=== PATIENT | male | born 1955 | race Hispanic/Latino ===

== ENCOUNTER 2017-08-09 12:59 | Inpatient (IN) | payer SELFPAY ==
--- NOTE | 2017-08-09 13:57 | XRay Report ---
CHEST ONE VIEW INDICATION: Hypertension. COMPARISON: None similar at this institution. FINDINGS: Portable, single, frontal chest radiograph demonstrates normal cardiomediastinal silhouette. Clear lungs. Post CABG changes. Extrinsic EKG leads. CONCLUSION: No acute disease in the chest. Thank you for the opportunity to participate in this patient's care.
[2017-08-09] MEDS ORDERED: NITRO-BID 2% TP ONE ×2 (14:15→16:23)
[2017-08-09 14:19] LABS: Basophils % (Auto) 0.9 % (0.0-1.8); Hematocrit 51.5 % (35.5-45.6); Mean Corpuscular HGB Conc 33 % (32-34); Mean Corpuscular Hemoglobin 30 pg (28-32); Mean Corpuscular Volume 91 fl (84-94); Platelet Count 164 K/mm3 (140-440); Red Blood Count 5.64 M/mm3 (3.65-5.03); Red Cell Distribution Width 14.1 % (13.2-15.2)
[2017-08-09 14:31] LABS: INR 1.02 (0.87-1.13); Partial Thromboplastin Time 27.2 Sec. (24.2-36.6)
[2017-08-09 14:39] LABS: Anion Gap 19 mmol/L; Blood Urea Nitrogen 14 mg/dL (9-20); Calcium 8.6 mg/dL (8.4-10.2); Carbon Dioxide 23 mmol/L (22-30); Chloride 103.5 mmol/L (98-107); Glucose 96 mg/dL (75-100); Potassium 3.5 mmol/L (3.6-5.0); Sodium 142 mmol/L (137-145)
[2017-08-09 14:41] LABS: Alanine Aminotransferase 26 units/L (7-56); Albumin 3.7 g/dL (3.9-5); Alkaline Phosphatase 72 units/L (35-129); Total Protein 7.3 g/dL (6.3-8.2)
[2017-08-09 14:42] LABS: Bilirubin,Direct < 0.2 mg/dL (0-0.2)
--- NOTE | 2017-08-09 15:05 | Emergency Department Report ---
ED Chest Pain HPI - General Chief Complaint: Chest Pain Stated Complaint: CHEST PAIN Time Seen by Provider: 08/09/17 13:40 Source: patient, EMS Mode of arrival: Stretcher Limitations: No Limitations - History of Present Illness Initial Comments: The patient states that he has calm up here from [place]. He states he's been out of his medicine to include Plavix for his stents for 2 weeks. He complains of recurrent chest pain similar to that prior acute coronary syndrome. He states that he had 2 stents placed at [facility] [place]. He referred the onset of chest pain/pressure at about noon today. He states the pain was radiating to his left upper extremity. He took 2 nitroglycerin and aspirin but stated that the pain was persistent upon us for arrival. He did not refer sweating nausea or vomiting. Blood pressure was elevated on arrival. MD Complaint: chest pain -: hour(s) Onset: during rest Pain Location: substernal Pain Radiation: LUE Severity: moderate Quality: tightness Consistency: constant Improves With: nothing Worsens With: nothing Context: other re: dyspnea Other Symptoms: other (history of PCI denies leg pain or swelling). denies: cough, fever, syncope Treatments Prior to Arrival: none Aspirin use within the Past 7 Days: (0) No - Related Data On Oral Contraceptives: No Home Medications Medication Instructions Recorded Confirmed Last Taken Aspirin [Aspirin TAB] 325 mg PO QDAY 08/09/17 08/09/17 Unknown Clopidogrel [Plavix] 75 mg PO QDAY 08/09/17 08/09/17 Unknown Lisinopril [Zestril] 20 mg PO QDAY 08/09/17 08/09/17 Unknown Allergies Allergy/AdvReac Type Severity Reaction Status Date / Time No Known Allergies Allergy Unverified 08/09/17 13:32 Heart Score - HEART Score History: Moderately suspicious EKG: Non-specific Age: 45-65 Risk factors: > 3 risk factors or hx of atherosclerotic disease Troponin: < normal limit HEART Score: 5 ED Review of Systems ROS: Stated complaint: CHEST PAIN Other details as noted in HPI Constitutional: denies: chills, fever Eyes: denies: eye pain, eye discharge, vision change ENT: denies: ear pain, throat pain Respiratory: shortness of breath. denies: cough, wheezing Cardiovascular: chest pain. denies: palpitations Endocrine: no symptoms reported Gastrointestinal: denies: abdominal pain, nausea, diarrhea Genitourinary: denies: urgency, dysuria Musculoskeletal: denies: back pain, joint swelling, arthralgia Skin: denies: rash, lesions Neurological: denies: headache, weakness, paresthesias Psychiatric: denies: anxiety, depression Hematological/Lymphatic: denies: easy bleeding, easy bruising ED Past Medical Hx - Past Medical History Previous Medical History?: Yes Hx Hypertension: Yes Hx Heart Attack/AMI: Yes ([place] X7) Additional medical history: Hep C - Social History Smoking Status: Current Every Day Smoker Substance Use Type: None - Medications Home Medications: Home Medications Medication Instructions Recorded Confirmed Last Taken Type Aspirin [Aspirin TAB] 325 mg PO QDAY 08/09/17 08/09/17 Unknown History Clopidogrel [Plavix] 75 mg PO QDAY 08/09/17 08/09/17 Unknown History Lisinopril [Zestril] 20 mg PO QDAY 08/09/17 08/09/17 Unknown History ED Physical Exam - General Limitations: No Limitations General appearance: alert, in no apparent distress - Head Head exam: Present: atraumatic, normocephalic - Eye Eye exam: Present: normal appearance. Absent: scleral icterus - ENT ENT exam: Present: mucous membranes moist - Neck Neck exam: Present: normal inspection - Respiratory Respiratory exam: Present: normal lung sounds bilaterally. Absent: respiratory distress - Cardiovascular Cardiovascular Exam: Present: regular rate, normal rhythm. Absent: systolic murmur, diastolic murmur, rubs, gallop - GI/Abdominal GI/Abdominal exam: Present: soft, normal bowel sounds. Absent: distended, tenderness, guarding, rebound, rigid - Rectal Rectal exam: Present: deferred - Extremities Exam Extremities exam: Present: normal inspection - Back Exam Back exam: Present: normal inspection - Neurological Exam Neurological exam: Present: alert, oriented X3, CN II-XII intact. Absent: motor sensory deficit - Psychiatric Psychiatric exam: Present: normal affect, normal mood - Skin Skin exam: Present: warm, dry, intact, normal color. Absent: rash ED Course Vital Signs 08/09/17 08/09/17 08/09/17 13:23 13:28 13:31 Temperature 97.8 F Pulse Rate 61 63 Respiratory 12 18 13 Rate Blood Pressure 180/104 180/104 O2 Sat by Pulse 99 98 Oximetry 09/13/17 09/13/17 09/13/17 13:36 14:01 14:31 Temperature Pulse Rate 75 61 Respiratory 20 10 L 16 Rate Blood Pressure 183/113 176/105 O2 Sat by Pulse 96 96 96 Oximetry 08/09/17 08/09/17 08/09/17 15:00 15:30 16:00 Temperature Pulse Rate 65 69 71 Respiratory 20 19 14 Rate Blood Pressure 186/111 170/108 182/113 O2 Sat by Pulse 96 94 95 Oximetry 08/09/17 08/09/17 08/09/17 16:25 16:30 17:00 Temperature Pulse Rate 71 66 66 Respiratory 16 14 Rate Blood Pressure 182/113 163/100 167/101 O2 Sat by Pulse 95 94 Oximetry 08/09/17 17:30 Temperature Pulse Rate Respiratory 14 Rate Blood Pressure 176/97 O2 Sat by Pulse 96 Oximetry - Reevaluation(s) Reevaluation #1: Multiple EKGs were reviewed reviewed. The patient does have evidence of an old inferior zone. Otherwise he has nonspecific changes. The static. 08/09/17 18:23 ED Medical Decision Making - Lab Data Result diagrams: 08/09/17 13:55 08/09/17 13:55 Laboratory Results - last 24 hr 08/09/17 08/09/17 08/09/17 13:55 13:55 13:55 WBC 7.0 RBC 5.64 H Hgb 17.0 H Hct 51.5 H MCV 91 MCH 30 MCHC 33 RDW 14.1 Plt Count 164 Lymph % (Auto) 30.1 [place] % (Auto) 10.1 H Eos % (Auto) 2.0 Baso % (Auto) 0.9 Lymph # 2.1 [place] # 0.7 Eos # 0.1 Baso # 0.1 Seg Neutrophils % 56.9 Seg Neutrophils # 4.0 PT 13.3 INR 1.02 APTT 27.2 Sodium 142 Potassium 3.5 L Chloride 103.5 Carbon Dioxide 23 Anion Gap 19 BUN 14 Creatinine 0.7 L Estimated GFR > 60 BUN/Creatinine Ratio 20.00 Glucose 96 Calcium 8.6 Total Bilirubin Direct Bilirubin AST ALT Alkaline Phosphatase Troponin T 0.025 NT-Pro-B Natriuret Pep Total Protein Albumin Albumin/Globulin Ratio 08/09/17 13:55 WBC RBC Hgb Hct MCV MCH MCHC RDW Plt Count Lymph % (Auto) [place] % (Auto) Eos % (Auto) Baso % (Auto) Lymph # [place] # Eos # Baso # Seg Neutrophils % Seg Neutrophils # PT INR APTT Sodium Potassium Chloride Carbon Dioxide Anion Gap BUN Creatinine Estimated GFR BUN/Creatinine Ratio Glucose Calcium Total Bilirubin 0.60 Direct Bilirubin < 0.2 AST 30 ALT 26 Alkaline Phosphatase 72 Troponin T NT-Pro-B Natriuret Pep 677.5 Total Protein 7.3 Albumin 3.7 L Albumin/Globulin Ratio 1.0 - EKG Data -: EKG Interpreted by Me EKG shows normal: sinus rhythm, axis, intervals, ST-T waves Rate: normal - EKG Data Interpretation: nonspecific ST-T wave carlo, other (old inferior zone) - Radiology Data interpreted by me: Previous CABG no acute findings Critical care attestation.: If time is entered above; I have spent that time in minutes in the direct care of this critically ill patient, excluding procedure time. ED Disposition Clinical Impression: Uncontrolled hypertension, Hx of CABG Chest pain Qualifiers: Chest pain type: unspecified Qualified Code(s): R07.9 - Chest pain, unspecified Disposition: -09 OP ADMIT IP TO THIS HOSP Is pt being admited?: Yes Does the pt Need Aspirin: Yes Condition: Stable Instructions: Chest Pain (ED), Hypertension (ED) Referrals: PRIMARY CARE, [Primary Care Provider] - 3-5 Days Time of Disposition: 18:45
[2017-08-09] MEDS ORDERED: ZESTRIL PO ONE (18:13)
[2017-08-09] MEDS ORDERED: PLAVIX PO ONE (18:13)
[2017-08-09] MEDS ORDERED: BABY ASPIRIN PO ONE (18:13)
[2017-08-09] MEDS ORDERED: LASIX IV ONE (18:16)
[2017-08-09] MEDS ORDERED: TYLENOL ONE (18:20)
[2017-08-09] MEDS ORDERED: TYLENOL PO ONE (18:22)
[2017-08-09] MEDS ORDERED: NACL 0.45% 500 ML IV SCH (19:00)
[2017-08-09] MEDS ORDERED: SODIUM CHLORIDE FLUSH SYRINGE 10 ML IV PRN (19:57)
[2017-08-09] MEDS ORDERED: PROVENTIL IH PRN (19:57)
[2017-08-09] MEDS ORDERED: TYLENOL PO PRN (19:57)
--- NOTE | 2017-08-09 20:00 | History and Physical Report ---
History of Present Illness Chief complaint: I was walking outside and my chest started hurting History of present illness: 62 YO Male with HTN, [place] x7, HCV, Nicotine Dependence, CAD S/P Stent placement, Noncompliant with DAPT for past 2 weeks presents to ED for evaluation. Pt states that he was walking outside this afternoon when he experienced an sudden onset of pain in his chest. Pt states that pain 6/10, substernal, nonradiating, persistent, not worsened with exertion, or relieved with rest. Pt states that he took 2 nitroglycerin tablets, and an aspirin without relief. Pt seen and evaluated in ED and was without symptoms at time of exam. Pt denies fever, chills, palpitations, syncope, diaphoresis, shortness of breath, chest pain with deep breathing, recent ill contacts, productive cough, leg swelling, calf pain, or trauma. Past History Past Medical History: acute MD, CAD, hepatitis, hyperlipidemia Past Surgical History: Other (Stent placement) Social history: , smoking. denies: alcohol abuse, prescription drug abuse, IV drug use Family history: CAD, hypertension Medications and Allergies Allergies Allergy/AdvReac Type Severity Reaction Status Date / Time No Known Allergies Allergy Unverified 08/09/17 13:32 Home Medications Medication Instructions Recorded Confirmed Last Taken Type Aspirin [Aspirin TAB] 325 mg PO QDAY 08/09/17 08/09/17 Unknown History Clopidogrel [Plavix] 75 mg PO QDAY 08/09/17 08/09/17 Unknown History Lisinopril [Zestril] 20 mg PO QDAY 08/09/17 08/09/17 Unknown History Active Meds: Active Medications Sodium Chloride (Nacl 0.45%) 500 mls @ 250 mls/hr IV DIRECT RAÚL Review of Systems Constitutional: no weight loss, no weight gain, no fever, no chills Ears, nose, mouth and throat: no ear pain, no ear discharge, no tinnitis, no decreased hearing Cardiovascular: chest pain, no orthopnea, no shortness of breath, no dyspnea on exertion, no paroxysmal nocturnal dyspnea, no leg edema Respiratory: no cough, no cough with sputum, no excessive sputum, no hemoptysis Gastrointestinal: no abdominal pain, no nausea, no vomiting, no diarrhea Genitourinary Male: no dysuria, no hematuria, no flank pain, no discharge Rectal: no pain, no incontinence, no bleeding Musculoskeletal: no neck stiffness, no neck pain, no shooting arm pain, no arm numbness/tingling, no low back pain Integumentary: no rash, no pruritis, no redness, no sores Neurological: no transient paralysis, no paralysis, no weakness, no parathesias Psychiatric: no anxiety, no memory loss, no change in sleep habits, no sleep disturbances, no insomnia Endocrine: no cold intolerance, no heat intolerance, no polyphagia, no excessive thirst, no polydipsia Hematologic/Lymphatic: no easy bruising, no easy bleeding Allergic/Immunologic: no urticaria, no allergic rhinitis, no wheezing Exam - Constitutional Vitals: Temp Pulse Resp BP Pulse Ox 97.8 F 61 17 180/101 96 08/09/17 13:28 08/09/17 19:30 08/09/17 19:30 08/09/17 19:30 08/09/17 19:30 General appearance: Present: mild distress - EENT Eyes: Present: PERRL ENT: hearing intact, clear oral mucosa - Neck Neck: Present: supple, normal ROM - Respiratory Respiratory effort: normal Respiratory: bilateral: CTA - Cardiovascular Heart Sounds: Present: S1 & S2. Absent: rub, click - Extremities Extremities: pulses symmetrical, No edema Peripheral Pulses: within normal limits - Abdominal General gastrointestinal: Present: soft, non-tender, non-distended, normal bowel sounds Male genitourinary: Present: normal - Integumentary Integumentary: Present: clear, warm, dry - Musculoskeletal Musculoskeletal: gait normal, strength equal bilaterally - Psychiatric Psychiatric: appropriate mood/affect, intact judgment & insight - Neurologic Neurologic: CNII-XII intact, moves all extremities Results - Labs CBC & Chem 7: 08/09/17 13:55 08/09/17 13:55 Labs: Abnormal lab results 08/09/17 08/09/17 08/09/17 Range/Units 13:55 13:55 13:55 RBC 5.64 H (3.65-5.03) M/mm3 Hgb 17.0 H (11.8-15.2) gm/dl Hct 51.5 H (35.5-45.6) % [place] % (Auto) 10.1 H (0.0-7.3) % Potassium 3.5 L (3.6-5.0) mmol/L Creatinine 0.7 L (0.8-1.5) mg/dL Troponin T (0.00-0.029) ng/mL Albumin 3.7 L (3.9-5) g/dL 08/09/17 Range/Units 17:52 RBC (3.65-5.03) M/mm3 Hgb (11.8-15.2) gm/dl Hct (35.5-45.6) % [place] % (Auto) (0.0-7.3) % Potassium (3.6-5.0) mmol/L Creatinine (0.8-1.5) mg/dL Troponin T 0.053 H D (0.00-0.029) ng/mL Albumin (3.9-5) g/dL Assessment and Plan - Patient Problems (1) Angina at rest Current Visit: Yes Status: Acute Plan to address problem: Serial cardiac enzymes, ekg, telemetry, cardiology consulted, therapeutic anticoagulation, (2) Accelerated hypertension Current Visit: Yes Status: Acute Plan to address problem: monitor bp q shift, continue current therapy, resume home medication, (3) Nicotine dependence Current Visit: Yes Status: Acute Qualifiers: Nicotine product type: N Substance use status: S Plan to address problem: Pt counseled, Pt refused to pick quit date (4) CAD (coronary artery disease) Current Visit: Yes Status: Acute Qualifiers: Coronary Disease-Associated Artery/Lesion type: C [place] vs. transplanted heart: N Associated angina: A Plan to address problem: resume DAPT, medical management, cardiology consulted (5) Noncompliance with medication regimen Current Visit: Yes Status: Acute Plan to address problem: Pt counseled, (6) DVT prophylaxis Current Visit: Yes Status: Acute
[2017-08-09] MEDS ORDERED: NACL 0.45% 1000 ML 1,000 ML IV ONE (20:03)
[2017-08-09] MEDS: PLAVIX PO SCH (20:56)
[2017-08-09] MEDS: ASPIRIN PO SCH (20:56)
[2017-08-09] MEDS: ZESTRIL PO SCH (20:57)
[2017-08-09] MEDS: PEPCID PO SCH (22:19)
[2017-08-10] MEDS ORDERED: LOVENOX SUB-Q SCH (06:00)
--- NOTE | 2017-08-10 09:05 | Progress Note ---
Assessment and Plan Assessment and plan: 62-year-old man with past medical history of hypertension and CAD status post stent placement, [place] 7, HCV, nicotine dependence who presented with sudden onset of chest pain Hypertensive urgency Chest pain Nicotine dependence and CAD Noncompliance with medication regimen Hospitalist Physical - Constitutional Vitals: Temp Pulse Resp BP Pulse Ox 97.5 F L 57 L 18 124/82 95 08/10/17 07:47 08/10/17 07:47 08/10/17 07:47 08/10/17 07:47 08/10/17 07:47 General appearance: Present: mild distress Results - Labs CBC & Chem 7: 08/09/17 13:55 08/09/17 13:55 Labs: Laboratory Last Values WBC 7.0 K/mm3 (4.5-11.0) 08/09/17 13:55 RBC 5.64 M/mm3 (3.65-5.03) H 08/09/17 13:55 Hgb 17.0 gm/dl (11.8-15.2) H 08/09/17 13:55 Hct 51.5 % (35.5-45.6) H 08/09/17 13:55 MCV 91 fl (84-94) 08/09/17 13:55 MCH 30 pg (28-32) 08/09/17 13:55 MCHC 33 % (32-34) 08/09/17 13:55 RDW 14.1 % (13.2-15.2) 08/09/17 13:55 Plt Count 164 K/mm3 (140-440) 08/09/17 13:55 Lymph % (Auto) 30.1 % (13.4-35.0) 08/09/17 13:55 [place] % (Auto) 10.1 % (0.0-7.3) H 08/09/17 13:55 Eos % (Auto) 2.0 % (0.0-4.3) 08/09/17 13:55 Baso % (Auto) 0.9 % (0.0-1.8) 08/09/17 13:55 Lymph # 2.1 K/mm3 (1.2-5.4) 08/09/17 13:55 [place] # 0.7 K/mm3 (0.0-0.8) 08/09/17 13:55 Eos # 0.1 K/mm3 (0.0-0.4) 08/09/17 13:55 Baso # 0.1 K/mm3 (0.0-0.1) 08/09/17 13:55 Seg Neutrophils % 56.9 % (40.0-70.0) 08/09/17 13:55 Seg Neutrophils # 4.0 K/mm3 (1.8-7.7) 08/09/17 13:55 PT 13.3 Sec. (12.2-14.9) 08/09/17 13:55 INR 1.02 (0.87-1.13) 08/09/17 13:55 APTT 27.2 Sec. (24.2-36.6) 08/09/17 13:55 Sodium 142 mmol/L (137-145) 08/09/17 13:55 Potassium 3.5 mmol/L (3.6-5.0) L 08/09/17 13:55 Chloride 103.5 mmol/L (98-107) 08/09/17 13:55 Carbon Dioxide 23 mmol/L (22-30) 08/09/17 13:55 Anion Gap 19 mmol/L 08/09/17 13:55 BUN 14 mg/dL (9-20) 08/09/17 13:55 Creatinine 0.7 mg/dL (0.8-1.5) L 08/09/17 13:55 Estimated GFR > 60 ml/min 08/09/17 13:55 BUN/Creatinine Ratio 20.00 % 08/09/17 13:55 Glucose 96 mg/dL (75-100) 08/09/17 13:55 Calcium 8.6 mg/dL (8.4-10.2) 08/09/17 13:55 Total Bilirubin 0.60 mg/dL (0.1-1.2) 08/09/17 13:55 Direct Bilirubin < 0.2 mg/dL (0-0.2) 08/09/17 13:55 AST 30 units/L (5-40) 08/09/17 13:55 ALT 26 units/L (7-56) 08/09/17 13:55 Alkaline Phosphatase 72 units/L (35-129) 08/09/17 13:55 Troponin T 0.062 ng/mL (0.00-0.029) H 08/10/17 02:34 NT-Pro-B Natriuret Pep 677.5 pg/mL (0-900) 08/09/17 13:55 Total Protein 7.3 g/dL (6.3-8.2) 08/09/17 13:55 Albumin 3.7 g/dL (3.9-5) L 08/09/17 13:55 Albumin/Globulin Ratio 1.0 % 08/09/17 13:55 Triglycerides 161 mg/dL (2-149) H 08/09/17 17:52 Cholesterol 177 mg/dL (50-199) 08/09/17 17:52 LDL Cholesterol Direct 111 mg/dL (50-130) 08/09/17 17:52 HDL Cholesterol 34 mg/dL (40-59) L 08/09/17 17:52 Cholesterol/HDL Ratio 5.20 % 08/09/17 17:52 Blood Type O POSITIVE 08/09/17 20:55 Antibody Screen Negative 08/09/17 20:55
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
[2017-08-10] MEDS ORDERED: NACL 0.9% 500 ML 500 ML IV SCH (14:00)
[2017-08-10 14:37] LABS: Hematocrit 49.6 % (35.5-45.6); Hemoglobin 16.8 gm/dl (11.8-15.2)
[2017-08-10 14:47] LABS: INR 0.99 (0.87-1.13)
[2017-08-10 14:52] LABS: Partial Thromboplastin Time 32.9 Sec. (24.2-36.6)
--- NOTE | 2017-08-10 16:19 | Event Note ---
Date: 08/10/17 Pt noted to have 8 beat run NSVT on tele. Pt asymptomatic with stable VS. Obtain serum Mg. Cont BB. Darwin BROWN NP / DR. LIM
[2017-08-10] MEDS: ASPIRIN PO SCH (16:54)
[2017-08-10] MEDS: PLAVIX PO SCH (16:54)
[2017-08-10] MEDS: PEPCID PO SCH ×2 (16:54→22:23)
[2017-08-10] MEDS: ZESTRIL PO SCH (16:55)
[2017-08-10] MEDS: HEPARIN/ 0.45% NACL-25,000 UNIT/500 ML 25,000 UNIT/500 ML BAG IV SCH (18:43)
[2017-08-10] MEDS: LOPRESSOR PO SCH (22:25)
[2017-08-11 06:14] LABS: Basophils % (Auto) 0.8 % (0.0-1.8); Eosinophils % (Auto) 3.1 % (0.0-4.3); Hematocrit 46.8 % (35.5-45.6); Hemoglobin 15.9 gm/dl (11.8-15.2); Mean Corpuscular HGB Conc 34 % (32-34); Mean Corpuscular Hemoglobin 31 pg (28-32); Mean Corpuscular Volume 90 fl (84-94); Platelet Count 128 K/mm3 (140-440); Red Blood Count 5.18 M/mm3 (3.65-5.03); Red Cell Distribution Width 14.1 % (13.2-15.2); White Blood Count 6.5 K/mm3 (4.5-11.0)
[2017-08-11 06:24] LABS: INR 1.01 (0.87-1.13)
[2017-08-11 06:47] LABS: Anion Gap 17 mmol/L; BUN/Creatinine Ratio 22.22; Blood Urea Nitrogen 20 mg/dL (9-20); Calcium 8.1 mg/dL (8.4-10.2); Carbon Dioxide 22 mmol/L (22-30); Chloride 102.8 mmol/L (98-107); Glucose 92 mg/dL (75-100); Potassium 3.7 mmol/L (3.6-5.0); Sodium 138 mmol/L (137-145)
[2017-08-11] MEDS ORDERED: CALAN ONE (08:47)
[2017-08-11] MEDS ORDERED: HEPARIN/NS 5000 UNIT/500ML(CATH LAB) 1,000 ML IR ONE (08:47)
[2017-08-11] MEDS ORDERED: HEPARIN 10,000 UNITS/10 ML ONE ×2 (08:47→08:48)
[2017-08-11] MEDS ORDERED: NITROGLYCERIN SYRINGE 3 ML ONE (08:48)
[2017-08-11] MEDS ORDERED: XYLOCAINE 2% INFILTRATI ONE ×2 (08:48→09:12)
[2017-08-11] MEDS ORDERED: NACL 0.9% 500 ML 500 ML ONE (08:55)
[2017-08-11] MEDS: HEPARIN/ 0.45% NACL-25,000 UNIT/500 ML 25,000 UNIT/500 ML BAG IV SCH (09:15)
[2017-08-11] MEDS: VERSED ONE ×2 (09:20→09:36)
[2017-08-11] MEDS: SUBLIMAZE ONE ×2 (09:20→09:36)
[2017-08-11] MEDS ORDERED: PLAVIX ONE (09:43)
--- NOTE | 2017-08-11 10:05 | Progress Note ---
Assessment and Plan Chest pain unstable angina sob with exertion Hypertension urgency Hyper lipid Coronary disease bypass in 2006 and PCI of SVG to PDA in 2017 Recommend in view of patent bypass grafts treat patient medically BP control aspirin Plavix statin and blood pressure control ,by the left radial approach post-cath care. Be discharged from a cardiovascular point of view Subjective Date of service: 08/11/17 Principal diagnosis: chest pain Interval history: Chest pain-free this morning Objective Vital Signs Temp Pulse Resp BP BP Pulse Ox 08/11/17 04:15 97.8 F 59 L 20 143/83 99 08/10/17 20:37 99 08/10/17 19:50 98.6 F 58 L 20 130/78 95 08/10/17 19:22 98.6 F 58 L 20 130/78 95 08/10/17 16:55 70 124/82 08/10/17 15:49 97.6 F 62 18 137/88 96 08/10/17 11:27 97.6 F 53 L 18 127/82 94 08/10/17 11:06 53 L 08/10/17 10:35 99 - Physical Examination General: Appears Well, No Apparent Distress HEENT: Positive: PERRL, Normocephaly, Mucus Membranes Moist Neck: Positive: neck supple, trachea midline Cardiac: Positive: Reg Rate and Rhythm, Regular Rhythm Lungs: Positive: clear to auscultation Neuro: Positive: Grossly Intact, Cranial Nerve 2-12 Intact Abdomen: Positive: Unremarkable, Soft, Active Bowel Sounds. Negative: Tender /Rectal: Normal Prostate, No Masses Skin: Positive: Clear. Negative: Rash, Wound Musculoskeletal: No Fluid Collection, No Pain, Normal Range of Motion Gait: Normal Gait Extremities: Present: upper extr. pulses, lower extr. pulses. Absent: edema - Labs and Meds Coagulation 08/10/17 08/11/17 Range/Units 13:57 04:49 PT 13.6 13.8 (12.2-14.9) Sec. INR 0.99 1.01 (0.87-1.13) APTT 32.9 (24.2-36.6) Sec. CBC 08/10/17 08/11/17 Range/Units 13:57 04:49 WBC 6.5 (4.5-11.0) K/mm3 RBC 5.18 H (3.65-5.03) M/mm3 Hgb 16.8 H 15.9 H (11.8-15.2) gm/dl Hct 49.6 H 46.8 H (35.5-45.6) % Plt Count 144 128 L (140-440) K/mm3 Lymph # 2.5 (1.2-5.4) K/mm3 [place] # 0.5 (0.0-0.8) K/mm3 Eos # 0.2 (0.0-0.4) K/mm3 Baso # 0.1 (0.0-0.1) K/mm3 Comprehensive Metabolic Panel 08/11/17 Range/Units 04:49 Sodium 138 (137-145) mmol/L Potassium 3.7 (3.6-5.0) mmol/L Chloride 102.8 (98-107) mmol/L Carbon Dioxide 22 (22-30) mmol/L BUN 20 (9-20) mg/dL Creatinine 0.9 (0.8-1.5) mg/dL Glucose 92 (75-100) mg/dL Calcium 8.1 L (8.4-10.2) mg/dL - Imaging and Cardiology EKG: image reviewed Echo: pending Cardiac cath: report reviewed (left main patent LAD mid 100% diagonal 1 ostial 90% patent DANIELSON to LAD circumflex. Obtuse marginal 1. 2 small 100% patent SVG to OM 2 RCA proximal 100% SVG to PDA patent with patent stent with normal LV function) - Telemetry EKG Rhythm: Sinus Rhythm - EKG Sinus rhythms and dysrhythmias: sinus rhythm Repolarization changes or abnormalities: nonspecific abnormality, ST segment, and/or T wave
--- NOTE | 2017-08-11 10:08 | Discharge Summary ---
Providers - Providers Date of Admission: 08/09/17 19:57 Attending physician: LEE CRUZ MD 08/11/17 10:02 Consult to Cardiac Rehabilitation [CONS] Routine Reason For Exam: Cardiac Rehab Evaluation Primary care physician: RIZWAN ROONEY MD Hospitalization Condition: Stable Hospital course: 62-year-old man with past medical history of hypertension and CAD status post stent placement, PA 7, HCV, nicotine dependence who presented with sudden onset of chest pain Hypertensive urgency Chest pain Nicotine dependence and CAD Noncompliance with medication regimen Disposition: - TO HOME OR SELFCARE Time spent for discharge: 33 minutes Core Measure Documentation - Palliative Care Palliative Care/ Comfort Measures: Not Applicable - Core Measures Any of the following diagnoses?: heart failure - Heart Failure Discharge Requirements KALIE/ARB for LVSD if EF <40%: Yes Beta andrea at discharge: Yes Exam - Constitutional Vitals: Temp Pulse Resp BP Pulse Ox 97.8 F 59 L 20 143/83 99 08/11/17 04:15 08/11/17 04:15 08/11/17 04:15 08/11/17 04:08/11/17 04:15 General appearance: Present: no acute distress, well-nourished - EENT Eyes: Present: PERRL ENT: hearing intact, clear oral mucosa - Neck Neck: Present: supple, normal ROM - Respiratory Respiratory effort: normal Respiratory: bilateral: CTA - Cardiovascular Heart Sounds: Present: S1 & S2. Absent: rub, click - Extremities Extremities: pulses symmetrical, No edema Peripheral Pulses: within normal limits - Abdominal General gastrointestinal: Present: soft, non-tender, non-distended, normal bowel sounds Male genitourinary: Present: normal - Integumentary Integumentary: Present: clear, warm, dry - Musculoskeletal Musculoskeletal: gait normal, strength equal bilaterally - Psychiatric Psychiatric: appropriate mood/affect, intact judgment & insight - Neurologic Neurologic: CNII-XII intact, moves all extremities Plan Follow up with: PRIMARY CARE, [Primary Care Provider] - 3-5 Days Prescriptions: AtorvaSTATin [Lipitor] 40 mg PO QHS #30 tablet Aspirin EC [Aspirin Enteric Coated TAB] 81 mg PO QDAY #30 tablet. Clopidogrel [Plavix] 75 mg PO QDAY #30 tablet Isosorbide Dinitrate [Isordil Titradose] 10 mg PO BID #60 tablet Lisinopril [Zestril TAB] 20 mg PO QDAY #30 tablet Metoprolol [Lopressor TAB] 12.5 mg PO BID #30 tablet
[2017-08-11] MEDS: ZESTRIL PO SCH (10:44)
[2017-08-11] MEDS: PLAVIX PO SCH (10:44)
[2017-08-11] MEDS: LOPRESSOR PO SCH (10:44)
[2017-08-11] MEDS: PEPCID PO SCH (10:44)
[2017-08-11] MEDS ORDERED: ISORDIL TITRADOSE PO SCH (11:00)
[2017-08-11] MEDS: ASPIRIN PO SCH (11:46)
--- NOTE | 2017-08-11 12:49 | Cardiac Catherization Report ---
NAME OF PROCEDURE: Left heart catheterization with bypass graft. CLINICAL INFORMATION: This is a 62-year-old gentleman who was in [place] 2 weeks ago after being out of group home for acute myocardial infarction and sounds like he had a PCI to his vein graft. The patient has history of bypass surgery in 2005. The patient has been out of his medications for the last 10 days. He presents with recurrent chest pain, hypertensive urgency. Left heart catheterization was performed via the left radial artery, sterile technique, local anesthesia, 6-Italian radial sheath inserted. PROCEDURE FINDINGS: Left system engaged with JL3.5 catheter, left main is a medium to large caliber vessel. It is patent with 10-20% diffuse disease. LAD is a medium caliber vessel that mid is 100%. Diagonal 1 is a small caliber vessel ____ has an ostial 90% lesion. Circumflex is a small to medium caliber vessel that is patent. OM-1 is a small caliber vessel and is patent. OM-2 is 100%. RCA engaged with JR4 catheter, is 100% proximal. SVG to OM engaged with a JR4 catheter. It is a medium caliber graft with mild luminal irregularities, but patent from ostial body, anastomotic site goes into the small OM-1 that is patent. DANIELSON was engaged with an IM catheter, is a large caliber graft, free of disease at the ostium, body, and goes into the mid LAD with good retrograde and anterograde flow and gives left to left collaterals and RCA, SVG to PDA was engaged with an AR Mod catheter and it is a large caliber graft, proximal has mild disease, proximal to mid stent is widely patent. Distal, it goes into a large caliber PDA that is patent and gives retrograde fill into the distal RCA. LV gram done in the SYRIAC and RODRIGUEZ view, shows normal LV function. LVEDP is 60 mmHg. EF 55%. LVEDP 147 mmHg. Aortic is 146/90. No gradient across the aortic valve on pullback. 5-Italian catheters all taken over a guidewire, 6-Italian radial sheath was discontinued. Radial dressing applied to left radial arm. No hematoma. No bleeding. SUMMARY: 1. Patent DANIELSON to LAD, patent SVG to OM-2, patent SVG with patent stent in the vein graft going to the PDA, which is a large caliber; left main 10-20%; LAD, mid 100%; ostial, diagonal 90%, small caliber vessel; RCA, proximal 100%. 2. Treat the patient medically with aspirin, Plavix, statin and BP control and urge the patient on compliance with medications. JOB# [id number] MICHAEL/[place]
[2017-08-11 13:56] VITALS: BP 152/84
[2017-08-12] MEDS ORDERED: BABY ASPIRIN PO SCH (10:00)
== END 2017-08-11 16:00 | disposition home or self-care (01) | DRG 287 ==
LOC: ED 12:59 → 4A 19:57
PROVIDERS: ADMIT Internal Medicine; ATTEND Internal Medicine
PROC: 4A023N7 Measurement of Cardiac Sampling and Pressure, Left Heart, Percutaneous Approach (ICD-10-PCS; principal; 2017-08-11)
PROC: B21F1ZZ Fluoroscopy of Other Bypass Graft using Low Osmolar Contrast (ICD-10-PCS; 2017-08-11)
PROC: B2111ZZ Fluoroscopy of Multiple Coronary Arteries using Low Osmolar Contrast (ICD-10-PCS; 2017-08-11)
DX: I25.110 Atherosclerotic heart disease of native coronary artery with unstable angina pectoris (principal); I16.0 Hypertensive urgency; F17.200 Nicotine dependence, unspecified, uncomplicated; I10 Essential (primary) hypertension; E78.5 Hyperlipidemia, unspecified; Z95.1 Presence of aortocoronary bypass graft; Z79.82 Long term (current) use of aspirin; Z79.899 Other long term (current) drug therapy; I25.2 Old myocardial infarction; Z91.14 Patient's other noncompliance with medication regimen; Z98.61 Coronary angioplasty status
CPT/HCPCS: 36415; 71010; 80048; 80061; 80074; 82962; 83735; 83880; 84484; 85014; 85018; 85025; 85049; 85520; 85610; 85730; 86850; 86900; 86901; 93005; 93010; 93306; 93459; 96374; 99285; A9270-GY; C1894; J1644; J1650; J1940; J2250; J3010; J7040; Q9967